=== PATIENT | female | born 1990 | race African-American/Black ===

== ENCOUNTER 2017-03-01 21:43 | Emergency (ER) | payer MEDICAID ==
[~2017-03-01 21:43] MED LIST: CIPR250T27 PO; DIVA500T4 PO; RISP3TAB24 PO
== END 2017-03-01 22:03 | disposition left against medical advice (07) ==
LOC: ED 21:57
DX: M79.604 Pain in right leg (principal)

== ENCOUNTER 2017-03-02 16:57 | Emergency (ER) | payer MEDICAID ==
[~2017-03-02] VITALS: Ht 165.1 cm; Wt 68.5 kg
[2017-03-02 16:59] VITALS: BP 111/73
== END 2017-03-02 18:39 ==
LOC: ED 18:33
DX: Z76.0 Encounter for issue of repeat prescription (principal); F41.1 Generalized anxiety disorder; F31.9 Bipolar disorder, unspecified; F20.9 Schizophrenia, unspecified
CPT/HCPCS: 99284; 99285

== ENCOUNTER 2019-12-08 04:36 | Emergency (ER) | payer MEDICAID ==
[~2019-12-08] VITALS: Ht 165.1 cm; Wt 86.0 kg
[2019-12-08 04:42] VITALS: BP 126/93
[2019-12-08] MEDS ORDERED: OLAN5TAB9 PO (04:44)
--- NOTE | 2019-12-08 05:02 | NUR ---
PT TO RAD NOW
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
--- NOTE | 2019-12-08 06:38 | NUR ---
PT NOT IN ROOM. SEARCH OF OTHER ROOMS AND RESTROOM FOUND NO PATIENT. PTS BELONGINGS HOWEVER ARE STILL IN THE ROOM
== END 2019-12-08 08:09 | disposition home or self-care (01) ==
LOC: ED 05:45
DX: S13.4XXA Sprain of ligaments of cervical spine, initial encounter (principal); Y04.8XXA Assault by other bodily force, initial encounter; Y93.89 Activity, other specified; Y92.89 Other specified places as the place of occurrence of the external cause; Y99.8 Other external cause status
CPT/HCPCS: 72050; 99283

== ENCOUNTER 2020-08-14 13:01 | Emergency (ER) | payer MEDICAID ==
[~2020-08-14 13:01] MED LIST changes: +OLAN5TAB9 PO
--- NOTE | 2020-08-14 13:28 | NUR ---
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
--- NOTE | 2020-08-14 14:41 | NUR ---
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
--- NOTE | 2020-08-14 15:15 | NUR ---
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
== END 2020-08-14 15:28 | disposition home or self-care (01) ==
LOC: ED 15:13
DX: F10.10 Alcohol abuse, uncomplicated (principal); Z53.21 Procedure and treatment not carried out due to patient leaving prior to being seen by health care provider

== ENCOUNTER 2020-10-01 10:32 | Emergency (ER) | payer MEDICAID ==
[~2020-10-01] VITALS: Ht 165.1 cm; Wt 73.0 kg
[2020-10-01 10:53] VITALS: BP 108/69
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
== END 2020-10-01 13:42 | disposition home or self-care (01) ==
LOC: ED 13:36
DX: S02.2XXA Fracture of nasal bones, initial encounter for closed fracture (principal); K02.9 Dental caries, unspecified; F17.290 Nicotine dependence, other tobacco product, uncomplicated; Y08.89XA Assault by other specified means, initial encounter; Y93.89 Activity, other specified; Y92.89 Other specified places as the place of occurrence of the external cause; Y99.8 Other external cause status
CPT/HCPCS: 70486; 99284

== ENCOUNTER 2021-03-04 15:15 | Emergency (ER) | payer MEDICAID ==
[~2021-03-04] VITALS: Ht 165.1 cm; Wt 80.0 kg
[2021-03-04 15:18] VITALS: BP 108/62
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
--- NOTE | 2021-03-04 16:13 | NUR ---
Pt found to be looking in cabinets and taking things including gauze and bandaids. Pt told this is not appropriate behavior, pt then stated "fine, I'm leaving anyway." Pt signed AMA form and was ambulatory to d/c with all belongings.
== END 2021-03-04 16:16 | disposition left against medical advice (07) ==
LOC: ED 16:00
DX: Z77.098 Contact with and (suspected) exposure to other hazardous, chiefly nonmedicinal, chemicals (principal)
CPT/HCPCS: 99283

== ENCOUNTER 2021-05-17 05:54 | Emergency (ER) | payer MEDICAID ==
[~2021-05-17] VITALS: Ht 165.1 cm; Wt 80.0 kg
[2021-05-17 05:56] VITALS: BP 109/72
--- NOTE | 2021-05-17 06:00 | NUR ---
INITIAL PT CONTACT. PT PRESENTS TO ED C/O RIGHT EAR PAIN AND SORE THROAT. PT STATES PAIN BEGAN IN THE THROAT APPROX 3 DAYS AGO AND MIGRATED TO THE EAR. PT SITTING UPRIGHT ON ILENE MARVIN VSS. PT DENIES ANY MEDICATION USE FOR PAIN, PT ALSO REQUESTS OUR PLACE REFERRAL. PT DENIES ANY NEEDS AT THIS TIME, CALL LIGHT AND BELONGINGS WITHIN REACH, CALL LIGHT AND PERSONAL BELONGINGS WITHIN REACH.
[2021-05-17] MEDS ORDERED: DEXAMETHASONE 4 MG TABLET ONE (06:16)
[2021-05-17] MEDS ORDERED: KETOROLAC 30 MG/1 ML ONE (06:16)
[2021-05-17] MEDS ORDERED: ACETAMINOPHEN 500 MG TABLET ONE (06:17)
[2021-05-17] MEDS ORDERED: KETOROLAC 30 MG/1 ML IM ONE (06:30)
[2021-05-17] MEDS ORDERED: ACETAMINOPHEN 500 MG TABLET PO ONE (06:30)
[2021-05-17] MEDS ORDERED: DEXAMETHASONE 4 MG TABLET PO ONE (06:30)
--- NOTE | 2021-05-17 07:14 | NUR ---
Patient given discharge instructions and they have confirmed that they understand the instructions. Patient ambulatory with steady gait. NAD, all questions answered appropriately, denies additional needs at this time. No personal belongings left in room after discharge.
== END 2021-05-17 07:15 | disposition home or self-care (01) ==
LOC: ED 06:02
DX: J03.00 Acute streptococcal tonsillitis, unspecified (principal); Z20.822 Contact with and (suspected) exposure to COVID-19; L04.0 Acute lymphadenitis of face, head and neck; F17.200 Nicotine dependence, unspecified, uncomplicated
CPT/HCPCS: 87081; 87880; 96372; 99283; J1885; U0003; U0005

== ENCOUNTER 2021-05-25 23:19 | Emergency (ER) | payer MEDICAID ==
[~2021-05-25] VITALS: Ht 165.1 cm; Wt 78.1 kg
--- NOTE | 2021-05-25 23:47 | NUR ---
PT C/O OF DOG BITE ON RIGHT SIDE OF ABDOMEN CAUSING HER PAIN. PT APPEARS TO HAVE 3 TINY RED BONILLA ON SKIN. PT IN NAD. BITE REPORT NUMBER [id number]. ATTACHED TOP MONITORS, ILENE DUNBAR. PT TALKING TO FRIEND AT BEDSIDE STATES SHE CAME IN TO GHET DOG BITE RECORDED. RECORDER HELPER SEISMOGRAPH TOLD HER TO DO SO. BED IN [facility], RAILS ENGAGED. CALL LIGHT ON LAP Addendum: 05/25/21 at 2351 by WILLIAM THIS CASE HAPPENED YESTERDAY WHEN PT TRIED PETTING DOG.
[2021-05-25 23:51] VITALS: BP 106/67
--- NOTE | 2021-05-25 23:53 | NUR ---
PT WAS TOLD MY RADIOLOGY CT TECHNOLOGIST THAT THE DOG HAD RABIES AND WANTS TO BE TREATED FOR IT. PA AT BEDSIDE FOR EVAL.
[2021-05-26] MEDS ORDERED: RABIES IMMUNE GLOBULIN/PF 150 UNITS/ML, 2ML IM ONE
[2021-05-26] MEDS ORDERED: RABIES VACCINE /PF 2.5 UNITS IM-VACC ONE
[2021-05-26] MEDS ORDERED: DIPH,PERTUSS(ACELL),TET VAC/PF 0.5 ML IM-VACC ONE (00:30)
--- NOTE | 2021-05-26 00:32 | NUR ---
UPON HOURLY ROUNDS PT WAS NOT IN ROOM. FRIEND AT BEDSIDE WAS GONE WELL. MONITORS WERE TAKEN OFF. ROOM WAS LEFT A MESS. PT ACCUSED REGISTRATION EARLIER IN STAY THAT SHE WAS SELLING DRUGS WHICH WAS NOT THE CASE. PT WAS NOT FOUND IN BATHROOM OR AROUND ER.
--- NOTE | 2021-05-26 00:39 | NUR ---
RABIES VACCINE WAS RETURNED TO PHARMACY.
== END 2021-05-26 00:45 | disposition left against medical advice (07) ==
LOC: ED 23:30
DX: S30.871A Other superficial bite of abdominal wall, initial encounter (principal); Z20.3 Contact with and (suspected) exposure to rabies; W54.0XXA Bitten by dog, initial encounter; Y93.89 Activity, other specified; Y92.89 Other specified places as the place of occurrence of the external cause; Y99.8 Other external cause status
CPT/HCPCS: 99283

== ENCOUNTER 2021-05-27 21:41 | Emergency (ER) | payer MEDICAID ==
[~2021-05-27] VITALS: Ht 165.1 cm; Wt 80.0 kg
[2021-05-27 21:56] VITALS: BP 106/60
== END 2021-05-27 23:24 | disposition left against medical advice (07) ==
LOC: ED 23:20
DX: R07.89 Other chest pain (principal)
CPT/HCPCS: 99283

== ENCOUNTER 2021-06-03 13:51 | Emergency (ER) | payer MEDICAID ==
[~2021-06-03] VITALS: Ht 165.1 cm; Wt 77.0 kg
[~2021-06-03 13:51] MED LIST changes: +OLAN5TAB69 PO; -OLAN5TAB9 PO
[2021-06-03 14:00] VITALS: BP 110/71
== END 2021-06-03 14:44 | disposition home or self-care (01) ==
LOC: ED 14:40
DX: H60.502 Unspecified acute noninfective otitis externa, left ear (principal)
CPT/HCPCS: 99283

== ENCOUNTER 2021-07-09 23:28 | Emergency (ER) | payer MEDICAID ==
[~2021-07-09] VITALS: Ht 167.6 cm; Wt 75.1 kg
[2021-07-09 23:36] VITALS: BP 96/67
--- NOTE | 2021-07-10 00:57 | NUR ---
Pt alert and oriented x4, sitting up on [place] in no distress. Obvious abrasion,small lac to left lateral forearm. Bleeding controlled. Pt has a hx of Bipolar Disorder and Schizophrenia. Pt c/o tonight a neighboors dog bit her. She was told by her brother that the dog has rabies. Pt states she needs the rabies vaccine. Pt was seen here on May 25, 2021 for a dog bite to her abdominal wall for which she was treated with Rabies immunoblobin, and initial rabies vaccine. Strict return precautions were discussed and education was provided regarding Rabies series vaccines. Pt was discharged with prescriptions for Amoxicillin. This was per Dr. Becker's note. Pt then returned on May 27, per Dr. Stone's note, this was less than 24 hours after initial visit, c/o an additional dog bite to R chest wall. Upon reviewing records, does not appear any interventions were performed at that time. Since, no records indicate that the pt had returned for her continuation of rabies series vaccines. When asked about this, pt became very defensive and abrasive stating "No one told me I needed to come back for additional vaccinations! Do you think I want to be bit by a dog?" I reassured pt that my conversation was not accusatory by any means, and that I as Primary RN am simply asking questions to gain an understanding of her prior visits and situations and lack of understanding regarding the education provided to her on the rabies series.
[2021-07-10] MEDS ORDERED: BACITRACIN ZINC OINT 500U/GM, 0.9 GM ONE (01:25)
--- NOTE | 2021-07-10 01:27 | NUR ---
Pt discharged at this time. Rabies vaccine administered. Strict return precautions identified. Extensive education discussed with patient regarding when to return for additional Rabies vaccines. Pt verbalized understadning. Pt wrote down on her own noted the dates she is to return. Pts wound applied bacitracin, covered with gauze and band-aid. pt ambualted out of the ED with all personal belongings.
[2021-07-10] MEDS ORDERED: RABIES VACCINE(IMOVAX) /PF 2.5 UNITS IM-VACC ONE (01:30)
== END 2021-07-10 01:30 | disposition home or self-care (01) ==
LOC: ED 07-10 00:28
DX: S51.852A Open bite of left forearm, initial encounter (principal); F17.200 Nicotine dependence, unspecified, uncomplicated; W54.0XXA Bitten by dog, initial encounter; Y93.89 Activity, other specified; Y92.89 Other specified places as the place of occurrence of the external cause; Y99.8 Other external cause status
CPT/HCPCS: 90471; 90675; 99283

== ENCOUNTER 2021-07-13 10:54 | Emergency (ER) | payer MEDICAID ==
[~2021-07-13] VITALS: Ht 165.1 cm; Wt 73.5 kg
[2021-07-13 11:12] VITALS: BP 96/63
[2021-07-13] MEDS ORDERED: NEOSPORIN OINT. PKT 1 PACKET ONE (11:53)
== END 2021-07-13 12:28 | disposition home or self-care (01) ==
LOC: ED 12:20
DX: S51.852A Open bite of left forearm, initial encounter (principal); F17.200 Nicotine dependence, unspecified, uncomplicated; W54.0XXA Bitten by dog, initial encounter; Y93.89 Activity, other specified; Y92.89 Other specified places as the place of occurrence of the external cause; Y99.8 Other external cause status
CPT/HCPCS: 99283